=== PATIENT | male | born 2000 | race Caucasian/White ===

== ENCOUNTER 2022-02-19 09:48 | Emergency (ER) | payer OTHER ==
[2022-02-19] MEDS ORDERED: Acetaminophen/oxyCODONE 325-5 MG Tab PO ONE (09:51)
== END 2022-02-19 11:20 | disposition home or self-care (01) ==
LOC: MW.ED 09:48
DX: S09.90XA Unspecified injury of head, initial encounter (principal); W22.8XXA Striking against or struck by other objects, initial encounter; Y99.0 Civilian activity done for income or pay
CPT/HCPCS: 70450; 99283; A9270